=== PATIENT | female | born 2000 | race Caucasian/White ===

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

== ENCOUNTER → 2019-02-22 | Outpatient (REF) | payer OTHER ==
[~2019-02-22] MED LIST: Birth control pill PO; ZOFR4TAB14 PO
== END ==
LOC: M LAB REF 12:17
PROVIDERS: ATTEND Physician Assistant Medical
DX: J02.9 Acute pharyngitis, unspecified (principal)

== ENCOUNTER → 2019-07-10 | Outpatient (CLI) | payer OTHER ==
--- NOTE | 2019-07-11 07:49 | REP ---
Clinical: Trauma. Technique: Frontal view of the chest with four views of the right hemithorax. Findings: Frontal view of the chest demonstrates no acute cardiopulmonary process. Four views of the right hemithorax demonstrates no obvious acute rib fracture or pathology. Impression: No acute fracture. Electronically Signed by Saran Valenzuela MD 07/10/2019 04:56 P
== END ==
LOC: M ADAMS 16:01
PROVIDERS: ATTEND Physician Assistant Medical
DX: S20.221A Contusion of right back wall of thorax, initial encounter (principal); X58.XXXA Exposure to other specified factors, initial encounter; Y92.9 Unspecified place or not applicable

== ENCOUNTER → 2021-08-09 | Outpatient (REF) | payer OTHER ==
[~2021-08-09] MED LIST changes: +CARA1TAB6 PO; +LARI1TAB9 PO; +PROT1TAB2 PO
== END ==
LOC: M LAB REF 16:15
PROVIDERS: ATTEND Physician Assistant
DX: R50.9 Fever, unspecified (principal)

== ENCOUNTER 2021-08-14 19:28 | Emergency (ER) | payer OTHER ==
[~2021-08-14] VITALS: Ht 172.7 cm; Wt 81.8 kg
--- OUTSIDE RECORDS SUMMARY | 2021-08-14 19:39 | CCD ---
Author Author [facility] Organization [facility] Address Unknown Phone Unavailable Care Team Providers Care Erp Consultant Name Role Phone Helen Juan MD Unavailable Unavailable Helen Juan MD Unavailable Unavailable Helen Juan MD Unavailable Unavailable Helen Juan MD Unavailable Unavailable Helen Juan MD Unavailable Unavailable Helen Juan MD Unavailable Unavailable Helen Juan MD Unavailable Unavailable Helen Juan MD Unavailable Unavailable Helen Juan MD Unavailable Unavailable Helen Juan MD Unavailable Unavailable Helen Juan MD Unavailable Unavailable Helen Juan MD Unavailable Unavailable Helen Juan MD Unavailable Unavailable Helen Juan MD Unavailable Unavailable Helen Juan MD Unavailable Unavailable Helen Juan MD Unavailable Unavailable Helen Juan MD Unavailable Unavailable Helen Juan MD Unavailable Unavailable Helen Juan MD Unavailable Unavailable Helen Juan MD Unavailable Unavailable Helen Juan MD Unavailable Unavailable Helen Juan MD Unavailable Unavailable Helen Juan MD Unavailable Unavailable Helen Juan MD Unavailable Unavailable Helen Juan MD Unavailable Unavailable Re-disclosure Warning The records that you are about to access may contain information from federally-assisted alcohol or drug abuse programs. If such information is present, then the following federally mandated warning applies: This information has been disclosed to you from records protected by federal confidentiality rules (42 CFR part 2). The federal rules prohibit you from making any further disclosure of this information unless further disclosure is expressly permitted by the written consent of the person to whom it pertains or as otherwise permitted by 42 CFR part 2. A general authorization for the release of medical or other information is NOT sufficient for this purpose. The Federal rules restrict any use of the information to criminally investigate or prosecute any alcohol or drug abuse patient.The records that you are about to access may contain highly sensitive health information, the redisclosure of which is protected by Article 27-F of the [facility] Public Health law. If you continue you may have access to information: Regarding HIV / AIDS; Provided by facilities licensed or operated by the [facility] Office of Mental Health; or Provided by the [facility] Office for People With Developmental Disabilities. If such information is present, then the following [facility] mandated warning applies: This information has been disclosed to you from confidential records which are protected by state law. State law prohibits you from making any further disclosure of this information without the specific written consent of the person to whom it pertains, or as otherwise permitted by law. Any unauthorized further disclosure in violation of state law may result in a fine or long term sentence or both. A general authorization for the release of medical or other information is NOT sufficient authorization for further disc losure. 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) mgm Unknown Female Problem [facility] ([facility] Encounters Encounter Providers Location Date Indications Data Source(s ) Outpatient Attender: iMsty Juan MD 0 07/03/2021 03:11:36 PM EDT - 07/03/2021 03:42:19 PM EDT [facility] ([facility]) Medications No Information Insurance Providers Payer name Policy type / Coverage type Policy ID Covered green party ID Covered green party's relationship to kapadia Policy [place] Plan Information [employer] [id number] FA2 [id number] [employer] [id number] FA2 [id number] [employer] [id number] Family Dependent [employer] [id number] Family Dependent [id number] [facility] [employer] [id number] Parent [id number] Umr[employer]Uhc[employer] Health Maintenance Organization (HMO) [id number] Family Dependent [id number] U[employer] Commercial [id number] Family Dependent [id number] UMR O [id number] C [id number] [employer] Health Maintenance Organization (HMO) [id number] Family Dependent [id number] [employer] Health Maintenance Organization (HMO) [id number] Family Dependent [id number] [employer] Health Maintenance Organization (HMO) [id number] Family Dependent [id number] UMR O UNAVAILABLE [id number] C UNAVAILA BLE [employer] PPO O [id number] C [id number] [employer] [id number] Family Dependent [id number] [employer] [id number] Family Dependent [id number] [employer] [id number] Family Dependent [id number] [employer] [id number] Family Dependent [id number] [employer] [id number] Family Dependent [id number] [employer] [id number] Family Dependent PUPIL BENEFITS HEALTH PL O UNAVAILABLE [id number] C UNAVAILABLE STATE FARM INS NO FAULT [id number] FA2 [id number] STATE FARM INS NO FAULT [id number] FA2 [id number] UMR [facility] [id number] FA2 [id number] [employer] [id number] FA2 [id number] [employer] Health Maintenance Organization (HMO) [id number] Family Dependent [id number] [employer] Health Maintenance Organization (HMO) [id number] Family Dependent [id number] Umr Commercial [id number] Family Dependent [id number] [employer] Medigap Part B [id number] Family Dependent [id number] Problems, Conditions, and Diagnoses No Information Surgeries/Procedures No Information Results ID Date Data Source [id number] 08/09/2021 03:05:00 PM EDT [facility] Name Value Range Interpretation Code Description Data Anna rce(s) Supporting Document(s) Respiratory pathogens identified [Type] in Nasopharynx by Probe and target amplification method SARS-CoV-2 (COVID 19) [facility] This lab was ordered by [facility] a nd reported by [facility]. ID Date Data Source [id number] 07/03/2021 03:30:00 PM EDT [facility] Name Value Range Interpretation Code Description Data Anna rce(s) Supporting Document(s) SARS-CoV-2 RNA Resp Ql RACHEL+probe NOT DETECTED [facility] This lab was ordered by BALBINA guzman and reported by BALBINA Christina. ID Date Data Source [id number] 12/16/2020 12:00:00 AM EST [facility] Name Value Range Interpretation Code Description Data Anna rce(s) Supporting Document(s) SARS-CoV2 Rapid Antigen Negative [facility] This lab was ordered by [facility] and reported by [facility]. ID Date Data Source [id number] 10/31/2020 12:00:00 AM EST [facility] Name Value Range Interpretation Code Description Data Anna rce(s) Supporting Document(s) SARS-CoV2 Rapid Antigen [facility] This lab was ordered by [facility] and reported by [facility]. Procedure Social History No Information
[2021-08-15] MEDS: NS 1,000 ML IV SCH ×2 (04:45→07:33)
[2021-08-15] MEDS ORDERED: ACETAMINOPHEN 325 MG TAB PO ONE (05:00)
[2021-08-15 05:15] LABS: BASO % 0.4 % (0.0-1.0); HEMATOCRIT 40.7 % (36.0-47.0); HEMOGLOBIN 13.1 g/dl (12.0-15.5); LYMPH # 1.3 10^3/uL (1.5-5.0); LYMPH % 48.1 % (24.0-44.0); MEAN CORPUSCULAR HEMOGLOBIN 28.5 pg (27.0-33.0); MEAN CORPUSCULAR HGB CONC 32.2 g/dl (32.0-36.5); MEAN CORPUSCULAR VOLUME 88.7 fl (80.0-96.0); MONO # 0.1 10^3/uL (0.0-0.8); MONO % 4.2 % (2.0-8.0); NEUTROPHILS # 1.2 10^3/uL (1.5-8.5); NEUTROPHILS % 46.9 % (36.0-66.0); PLATELET COUNT, AUTOMATED 127 10^3/uL (150-450); RED BLOOD COUNT 4.59 10^6/uL (4.00-5.40); WHITE BLOOD COUNT 2.6 10^3/uL (4.0-10.0)
[2021-08-15 05:23] LABS: INR 0.99; PROTHROMBIN TIME 13.4 SECONDS (12.7-14.5)
[2021-08-15 05:24] LABS: PARTIAL THROMBOPLASTIN TIME 37.6 SECONDS (25.9-37.0)
[2021-08-15 05:27] LABS: D-DIMER QUANT 572.56 ng/ml (<500)
[2021-08-15 05:41] LABS: ALBUMIN 3.8 GM/DL (3.2-5.2); ALT/SGPT 40 U/L (12-78); BILIRUBIN,DIRECT < 0.1 MG/DL (0.0-0.2); BILIRUBIN,TOTAL 0.3 MG/DL (0.2-1.0); C REACTIVE PROTEIN QUANTITATIV 2.19 MG/DL (0.00-0.30); CPK CREATINE PHOSPHOKINASE 61 U/L (26-192); FERRITIN 156 NG/ML (8-252); LDH LACTATE DEHYDROGENASE 239 U/L (84-246); TOTAL PROTEIN 7.1 GM/DL (6.4-8.2); TROPONIN I < 0.02 NG/ML (< 0.10)
--- NOTE | 2021-08-15 06:49 | REPVR ---
PROCEDURE INFORMATION: Exam: XR Chest Exam date and time: 08/15/2021 4:37 AM Age: 21 years old Clinical indication: Other: SOB TECHNIQUE: Imaging protocol: XR of the chest. Views: 1 view. COMPARISON: CR Chest, 2 view PA, Lat 09/13/2019 11:21 PM FINDINGS: Lungs: Hazy ground-glass opacity within the right lower lung consistent with infiltrate. Minimal hazy opacity within the left lower lung may represent superimposed breast tissue or minimal infiltrate as well. Pleural spaces: Unremarkable. No pleural effusion. No pneumothorax. Heart/Mediastinum: Unremarkable. No cardiomegaly. Bones/joints: Unremarkable. IMPRESSION: Ground-glass infiltrate within the right lower lung consistent with pneumonia. Possible minimal infiltrate within the left lower lung as well. Electronically signed by: Saran Avalos On 08/15/2021 06:49:15 AM
[2021-08-15 07:30] LABS: HCG, SERUM QUALITATIVE NEGATIVE (NEGATIVE)
[2021-08-15 07:34] LABS: BLOOD UREA NITROGEN 13 MG/DL (7-18); CALCIUM LEVEL 8.5 MG/DL (8.5-10.1); CARBON DIOXIDE LEVEL 23 MEQ/L (21-32); CHLORIDE LEVEL 105 MEQ/L (98-107); CREATININE FOR GFR 0.75 MG/DL (0.55-1.30); GLOMERULAR FILTRATION RATE > 60.0 (>60); GLUCOSE, FASTING 78 MG/DL (70-100); POTASSIUM SERUM 4.2 MEQ/L (3.5-5.1); SODIUM LEVEL 137 MEQ/L (136-145)
[2021-08-15] MEDS ORDERED: ISOVUE-370 76% 100ML VIAL As Ordered ONE (07:49)
--- NOTE | 2021-08-15 08:31 | REP ---
INDICATION: SOB/pleuritic chest pain, rule out PE COMPARISON: None. TECHNIQUE: Axial contrast enhanced images from the thoracic inlet to the upper abdomen using pulmonary embolus technique with multiplanar re-formations. 100 ml Isovue 370 intravenous contrast material administered without complication. This CT examination was performed using the following dose reduction techniques: Automated exposure control, adjustment of mA and/or kv according to the patient's size, and use of iterative reconstruction technique. FINDINGS: Satisfactory enhancement of the pulmonary vasculature is achieved and no filling defects are identified to suggest pulmonary embolus. Further evaluation of the mediastinum demonstrates normal thoracic aorta, heart and pericardium. Area of consolidation involving the right middle lobe and smaller patchy foci of airspace disease in the left lower lobe consistent with multifocal pneumonia. Correlation is required as COVID-19 pulmonary disease cannot be excluded. No effusion. No pneumothorax. No significant adenopathy. Tracheobronchial tree is patent. Musculoskeletal structures are intact. IMPRESSION: No evidence for pulmonary embolus. Moderate right lower lobe opacity and patchy left lower lobe opacities consistent with multifocal pneumonia versus COVID-19 pulmonary disease.. <Electronically signed by Saran Valenzuela > 08/15/21 [id number]
--- NOTE | 2021-08-15 08:32 | REP ---
INDICATION: distended abdomen, sob. COMPARISON: None TECHNIQUE: Axial contrast-enhanced images from the lung bases to the pubic symphysis using 100 cc Isovue 370 intravenous contrast material. Coronal and sagittal reformations obtained. This CT examination was performed using the following dose reduction techniques: Automated exposure control, adjustment of mA and/or kv according to the patient's size, and the use of iterative reconstruction technique. FINDINGS: Liver, spleen, pancreas, gallbladder, bilateral adrenal glands and kidneys are normal. The enteric system including stomach, small, and large bowel appears normal. No evidence for obstruction or acute inflammatory process. Normal terminal ileum and appendix are identified in the right lower quadrant. Pelvis demonstrates normal bladder and age-appropriate uterus/adnexa. No ascites. No free air. No intraperitoneal or retroperitoneal adenopathy. Abdominal aorta and vasculature appear normal. Musculoskeletal structures are intact and without acute osseous abnormality. IMPRESSION: No acute abdominopelvic pathology appreciated. Primarily right lower lobe consolidation suggesting pneumonia versus COVID-19 pulmonary disease. <Electronically signed by Saran Valenzuela > 08/15/21 0850
[2021-08-15] MEDS ORDERED: LevoFLOXacin 750 MG TABLET PO ONE (09:00)
--- OUTSIDE RECORDS SUMMARY | 2021-08-15 09:50 | CCD ---
Author Author [facility] Organization [facility] Address Unknown Phone Unavailable Care Team Providers Care Outcomes Specialist Name Role Phone Helen Juan MD Unavailable [...] is protected by Article 27-F of the [facility] Public Health law. If you continue you may have access to information: Regarding HIV / AIDS; Provided by facilities licensed or operated by the [facility] Office of Mental Health; or Provided by the [facility] Office for People With Developmental Disabilities. If such information is present, then the following [facility] mandated warning applies: This information has [...] law may result in a fine or usp sentence or both. A general authorization for the release of medical or other information is NOT sufficient authorization for further disc losure. Family History Family Member Name Family Member Gender Family Member Status Date o f Status Description Data Source(s) Unknown Unknown Problem MEDENT ([facility]) mgm Unknown Female Problem MEDENT ([facility]) Encounters Encounter Providers Location Date Indications Data Source(s ) Outpatient Attender: Misty Juan MD 0 07/03/2021 03:11:36 PM EDT - 07/03/2021 03:42:19 PM EDT [facility] ([facility]) Medications No Information Insurance Providers Payer name Policy type / Coverage type Policy ID Covered democrat ID Covered democrat's relationship to bedolla Policy [place] Plan Information [employer] [id number] FA2 [id number] [employer] [id number] FA2 [id number] [employer] [id number] Family Dependent [employer] [id number] Family Dependent [id number] [facility] Commercial Insurance Co. [id number] Parent [id number] U[employer] Health Maintenance Organization (HMO) [id number] Family Dependent [id number] Umr Commercial [id number] Family Dependent [id number] UMR O [id number] C [id number] U[employer] Health Maintenance Organization (HMO) [id number] Family Dependent [id number] [employer] Health Maintenance Organization (HMO) [id number] Family Dependent [id number] [employer] Health Maintenance Organization (HMO) [id number] Family Dependent [id number] UMR O UNAVAILABLE [id number] C UNAVAILA BLE [employer] PPO O [id number] C [id number] [employer] Commercial [id number] Family Dependent [id number] [employer] [id number] Family Dependent [id number] [employer] [id number] Family Dependent [id number] [employer] [id number] Family Dependent [id number] [employer] [id number] Family Dependent [id number] [employer] [id number] Family Dependent PUPIL BENEFITS HEALTH PL O UNAVAILABLE [id number] C UNAVAILABLE STATE FARM INS NO FAULT [id number] FA2 [id number] [place] INS NO FAULT [id number] FA2 [id number] UMR [facility] [id number] FA2 [id number] [employer] [id number] FA2 [id number] [facility] Health Maintenance Organization (HMO) [id number] Family Dependent [id number] [facility] Health Maintenance Organization (HMO) [id number] Family Dependent [id number] Umr Commercial [id number] Family Dependent [id number] [employer] Medigap Part B [id number] Family Dependent [id number] Problems, Conditions, and Diagnoses No Information Surgeries/Procedures No Information Results ID Date Data Source [id number] 08/09/2021 03:05:00 PM EDT [facility] Name Value Range Interpretation Code Description Data Anna rce(s) Supporting Document(s) Respiratory pathogens identified [Type] in Nasopharynx by Probe and target amplification method SARS-CoV-2 (COVID 19) [facility] This lab was ordered by [facility] a nd reported by [facility]. ID Date Data Source [id number] 07/03/2021 03:30:00 PM EDT [facility] Name Value Range Interpretation Code Description Data Anna rce(s) Supporting Document(s) SARS-CoV-2 RNA Resp Ql RACHEL+probe NOT DETECTED [facility] This lab was ordered by BALBINA guzman and reported by [facility] Christina. ID Date Data Source [id number] 12/16/2020 12:00:00 AM EST [facility] Name Value Range Interpretation Code Description Data Anna rce(s) Supporting Document(s) SARS-CoV2 Rapid Antigen Negative [facility] This lab was ordered by [facility] and reported by [facility]. ID Date Data Source [id number] 10/31/2020 12:00:00 AM EST [facility] Name Value Range Interpretation Code Description Data Anna rce(s) Supporting Document(s) SARS-CoV2 Rapid Antigen [facility] This lab was ordered by [facility] and reported by [facility]. Procedure Social History No Information
[2021-08-15] MEDS ORDERED: LEVO750T13 PO (11:09)
[2021-08-15 11:23] VITALS: BP 104/58
== END 2021-08-15 13:46 | disposition home or self-care (01) ==
LOC: M ED 19:28
DX: U07.1 COVID-19 (principal); J12.9 Viral pneumonia, unspecified; Z88.2 Allergy status to sulfonamides; Z91.030 Bee allergy status; Z79.899 Other long term (current) drug therapy
CPT/HCPCS: 71045; 71275; 74177; 80048; 80076; 82550; 82728; 83615; 84484; 84703; 85025; 85379; 85384; 85610; 85730; 86140; 96360; 99284; Q9967

== ENCOUNTER 2021-08-15 19:00 | Outpatient (CLI) | payer OTHER ==
--- NOTE | 2021-08-15 12:09 | IPNPDOC ---
Subjective Date Seen The patient was seen on 08/15/21. Subjective Chief Complaint/HPI Ms. Curry is a 21 year old female who is here with COVID symtpoms. She is unvaccinated. Last week she was off from work. Denies any sick contacts or recent travel. She is not sure how she cought COVID, but on , Aug, she started to have chills, fever of 102, dry cough, and headaches. She was tested positive for COVID on Thursday, Aug 09, 2021. Her symtpoms progressively worsened. On Thursday, she had loss of taste. Yesterday she had shortness of breath. Today, she came to the ED for evaluation. While here, vitals were stable. She did have a fever, but not hypoxic. These was consodidation on the right lower lobe, but patient did not meet impatient criteria. Patient was to be sent home with Levoflxacin. Otherwise, the risks and benefits of monoclonal antibiodies were discussed with the patient. She is agreeable to monoclonal antibodies, and she signed the consent form. Past medical history Patient denies any past medical history Past surgical history Patient denies any past surgical history Social history Patient lives alone She is unvaccinated Denies ever smoking Denies alcohol used Denies any recreational drug use Family history Patient denies any known medical history in parents Constitutional: Reports: Fever Eyes: Denies: Vision change ENT: Reports: Head Aches, Other Symptoms (Loss of taste) Skin: Denies: Rash Pulmonary: Reports: Dyspnea, Cough Cardiovascular: Denies: Chest Pain Gastrointestinal: Denies: Abdominal Pain, Diarrhea Genitourinary: Denies: Dysuria Hematologic: Denies: Bruising Neurological: Denies: Numbness Psych: Denies: Anxiety, Depression Objective Physical Examination General Exam: Positive: Alert, Cooperative, No Acute Distress Eye Exam: Positive: EOMI; Negative: Sclera icteric ENT Exam: Positive: Atraumatic Neck Exam: Positive: Supple Chest Exam: Positive: Clear to auscultation Heart Exam: Positive: Rate Normal, Regular Rhythm Abdomen Exam: Positive: Normal bowel sounds, Soft; Negative: Tenderness Extremity Exam: Negative: Edema Neuro Exam: Positive: Normal Speech Psych Exam: Positive: Mental status NL, Mood NL Assessment /Plan Assessment Ms. Curry is a 21 year old female who is here with COVID symtpoms. She is unvaccinated. She denies recent travel or sick contacts. She is unclear how she caught COVID 19, but she did say she went out to [employer] and [employer]. Imaging demonstrated right lower lobe consolidation, but patient did not have any hypoxia. She has a dry cough. Patient will be discharged with Levofloxacin. Otherwise, We discussed about monoclonal antibodies and she is agreeable to them. Patient to receive monoclonal antibodies today. Plan/VTE VTE Prophylaxis Ordered?: No (Outpatinet) Plan 1. COVID 19 infection -Not hypoxic -Dry cough -We discussed the risks and benefits of monoclonal antibodies. Patient to receive monoclonal antibodies today. 2. Right lower lobe pneumonia -Continue PO levofloxacin Patient should follow up with PCP within a week. BUCKY SANTACRUZ DO Aug 15, 2021 12:09
[2021-08-15 16:40] VITALS: BP_SYST 132; BP_SYST 99; BP_DIAS 54; BP_DIAS 71
[2021-08-15 17:10] VITALS: BP 101/57
[2021-08-15 17:45] VITALS: BP 97/62
[2021-08-15 18:51] VITALS: BP 114/57
[~2021-08-15 19:00] MED LIST changes: +ACETAMINOPHEN TAB 650MG DOSE (2X325MG) PO PRN; +ALBUTEROL 90 MCG/ACT 8GM HFA INHALER INH PRN; +ALBUTEROL SULFATE 2.5 MG/0.5 ML INH NEB SOLN INH PRN; +BAMLANIVIMAB 700 MG, ETESEVIMAB 1,400 MG in NS 250 ML IV ONE; +CASIRIVIMAB/IMDEVIMAB 1,200 MG in NS 250 ML IV ONE; +EPINEPHrine INJ 1 MG/ML 1ML AMP IM PRN; +LEVO750T13 PO; +NS 1,000 ML IV SCH; +diphenhydrAMINE 50MG/ML VIAL (J1200) IV PRN; +methylPREDNISolone 125MG 2ML VIAL IV PRN
== END 2021-08-15 19:05 ==
LOC: M 4MAIN 19:00 → M OPCLI4 19:00
PROVIDERS: ATTEND Internal Medicine
DX: U07.1 COVID-19 (principal); Z88.2 Allergy status to sulfonamides

== ENCOUNTER → 2021-12-23 | Outpatient (CLI) | payer OTHER ==
[~2021-12-23] MED LIST changes: -ACETAMINOPHEN TAB 650MG DOSE (2X325MG) PO PRN; -ALBUTEROL 90 MCG/ACT 8GM HFA INHALER INH PRN; -ALBUTEROL SULFATE 2.5 MG/0.5 ML INH NEB SOLN INH PRN; -BAMLANIVIMAB 700 MG, ETESEVIMAB 1,400 MG in NS 250 ML IV ONE; -CASIRIVIMAB/IMDEVIMAB 1,200 MG in NS 250 ML IV ONE; -EPINEPHrine INJ 1 MG/ML 1ML AMP IM PRN; -NS 1,000 ML IV SCH; -diphenhydrAMINE 50MG/ML VIAL (J1200) IV PRN; -methylPREDNISolone 125MG 2ML VIAL IV PRN
[2021-12-23 10:41] LABS: BASO % 0.5 % (0.0-1.0); EOS # 0.2 10^3/uL (0.0-0.5); EOS % 3.3 % (0.0-3.0); HEMATOCRIT 39.1 % (36.0-47.0); HEMOGLOBIN 12.7 g/dl (12.0-15.5); LYMPH # 2.6 10^3/uL (1.5-5.0); LYMPH % 41.2 % (24.0-44.0); MEAN CORPUSCULAR HEMOGLOBIN 28.7 pg (27.0-33.0); MEAN CORPUSCULAR HGB CONC 32.5 g/dl (32.0-36.5); MEAN CORPUSCULAR VOLUME 88.5 fl (80.0-96.0); MONO # 0.3 10^3/uL (0.0-0.8); MONO % 5.4 % (2.0-8.0); NEUTROPHILS # 3.1 10^3/uL (1.5-8.5); NEUTROPHILS % 49.4 % (36.0-66.0); PLATELET COUNT, AUTOMATED 268 10^3/uL (150-450); RED BLOOD COUNT 4.42 10^6/uL (4.00-5.40); WHITE BLOOD COUNT 6.3 10^3/uL (4.0-10.0)
[2021-12-23 11:23] LABS: ALBUMIN 3.8 GM/DL (3.2-5.2); ALT/SGPT 26 U/L (12-78); BILIRUBIN,TOTAL 0.6 MG/DL (0.2-1.0); BLOOD UREA NITROGEN 12 MG/DL (7-18); CALCIUM LEVEL 8.8 MG/DL (8.5-10.1); CARBON DIOXIDE LEVEL 26 MEQ/L (21-32); CHLORIDE LEVEL 108 MEQ/L (98-107); CREATININE FOR GFR 0.87 MG/DL (0.55-1.30); FREE T4 0.98 NG/DL (0.76-1.46); GLOMERULAR FILTRATION RATE > 60.0 (>60); GLUCOSE, FASTING 83 MG/DL (70-100); POTASSIUM SERUM 3.9 MEQ/L (3.5-5.1); SODIUM LEVEL 139 MEQ/L (136-145); TOTAL PROTEIN 7.1 GM/DL (6.4-8.2)
== END ==
LOC: M LAB 09:54
PROVIDERS: ATTEND Nurse Practitioner Family
DX: Z00.00 Encounter for general adult medical examination without abnormal findings (principal)

== ENCOUNTER → 2022-07-18 | Outpatient (CLI) | payer OTHER ==
[~2022-07-18] MED LIST changes: +LEVO1TAB40 PO; -LEVO750T13 PO
[2022-07-18 07:54] LABS: BASO % 0.6 % (0.0-1.0); EOS # 0.2 10^3/uL (0.0-0.5); EOS % 3.7 % (0.0-3.0); HEMATOCRIT 41.2 % (36.0-47.0); HEMOGLOBIN 13.1 g/dl (12.0-15.5); LYMPH # 2.2 10^3/uL (1.5-5.0); LYMPH % 34.3 % (24.0-44.0); MEAN CORPUSCULAR HEMOGLOBIN 28.6 pg (27.0-33.0); MEAN CORPUSCULAR HGB CONC 31.8 g/dl (32.0-36.5); MONO # 0.4 10^3/uL (0.0-0.8); MONO % 6.6 % (2.0-8.0); NEUTROPHILS # 3.5 10^3/uL (1.5-8.5); NEUTROPHILS % 54.2 % (36.0-66.0); PLATELET COUNT, AUTOMATED 297 10^3/uL (150-450); RED BLOOD COUNT 4.58 10^6/uL (4.00-5.40); WHITE BLOOD COUNT 6.5 10^3/uL (4.0-10.0)
[2022-07-18 08:33] LABS: ALT/SGPT 29 U/L (12-78); BILIRUBIN,TOTAL 0.3 MG/DL (0.2-1.0); BLOOD UREA NITROGEN 9 MG/DL (7-18); CALCIUM LEVEL 9.3 MG/DL (8.5-10.1); CARBON DIOXIDE LEVEL 28 MEQ/L (21-32); CHLORIDE LEVEL 106 MEQ/L (98-107); CREATININE FOR GFR 0.92 MG/DL (0.55-1.30); GLOMERULAR FILTRATION RATE > 60.0 (>60); GLUCOSE, FASTING 78 MG/DL (70-100); POTASSIUM SERUM 4.3 MEQ/L (3.5-5.1); SODIUM LEVEL 136 MEQ/L (136-145); TOTAL PROTEIN 7.6 GM/DL (6.4-8.2)
[2022-07-19 12:08] LABS: H PYLORI SERUM QUANT IGA <9.0 units (0.0-8.9); H PYLORI SERUM QUANT IGM <9.0 units (0.0-8.9)
== END ==
LOC: M LAB 07:05
PROVIDERS: ATTEND Nurse Practitioner Family
DX: R10.84 Generalized abdominal pain (principal)

== ENCOUNTER → 2022-10-07 | Outpatient (CLI) | payer OTHER | LOC: M RAD 16:43 | PROVIDERS: ATTEND Registered Nurse | DX: M25.562 Pain in left knee (principal) ==

== ENCOUNTER → 2022-10-13 | Outpatient (CLI) | payer OTHER | LOC: M PLAIMG 06:54 | PROVIDERS: ATTEND Registered Nurse | DX: M25.562 Pain in left knee (principal) ==

== ENCOUNTER → 2022-12-27 | Outpatient (CLI) | payer OTHER ==
[2022-12-27 10:01] LABS: HEMOGLOBIN A1c 5.2 % (4.0-6.0)
[2022-12-27 10:04] LABS: CHOLESTEROL RISK RATIO 2.96 (<5); HDL CHOLESTEROL 52.6 MG/DL (>40); LDL CHOLESTEROL 91.6 MG/DL (<100); THYROID STIMULATING HORMONE 2.622 uIU/ML (0.55-4.78)
[2022-12-27 10:05] LABS: FREE T4 0.93 NG/DL (0.89-1.76)
== END ==
LOC: M LAB 08:53
PROVIDERS: ATTEND Nurse Practitioner Family
DX: E66.9 Obesity, unspecified (principal)

== ENCOUNTER 2023-04-06 20:45 | Emergency (ER) | payer OTHER ==
[~2023-04-06] VITALS: Ht 172.7 cm; Wt 91.7 kg
[2023-04-06 20:47] VITALS: BP 121/62
== END 2023-04-06 22:52 | disposition left against medical advice (07) ==
LOC: M ED 20:45
DX: Z53.21 Procedure and treatment not carried out due to patient leaving prior to being seen by health care provider (principal)

== ENCOUNTER → 2023-12-15 | Outpatient (REF) | payer OTHER ==
[2023-12-15 19:32] LABS: CHLAMYDIA DNA AMPLIFICATION NEGATIVE (NEGATIVE); GC DNA AMPLIFICATION NEGATIVE (NEGATIVE)
== END ==
LOC: M LAB REF 17:35
PROVIDERS: ATTEND Registered Nurse
DX: Z11.3 Encounter for screening for infections with a predominantly sexual mode of transmission (principal)

== ENCOUNTER → 2024-09-19 | Outpatient (CLI) | payer OTHER | LOC: M PLAIMG 06:38 | PROVIDERS: ATTEND Physician Assistant Medical | DX: M25.562 Pain in left knee (principal); M25.462 Effusion, left knee; M67.52 Plica syndrome, left knee ==

== ENCOUNTER → 2025-02-14 | Outpatient (CLI) | payer OTHER ==
[2025-02-14 08:19] LABS: BASO # 0.1 10^3/uL (0.0-0.2); BASO % 1.5 % (0.0-1.0); EOS # 0.2 10^3/uL (0.0-0.5); EOS % 3.4 % (0.0-3.0); HEMATOCRIT 37.4 % (36.0-47.0); HEMOGLOBIN 12.2 g/dl (12.0-15.5); LYMPH # 2.1 10^3/uL (1.5-5.0); LYMPH % 35.8 % (24.0-44.0); MEAN CORPUSCULAR HEMOGLOBIN 28.7 pg (27.0-33.0); MEAN CORPUSCULAR HGB CONC 32.6 g/dl (32.0-36.5); MONO # 0.3 10^3/uL (0.0-0.8); MONO % 4.9 % (2.0-8.0); NEUTROPHILS # 3.2 10^3/uL (1.5-8.5); NEUTROPHILS % 53.9 % (36.0-66.0); PLATELET COUNT, AUTOMATED 257 10^3/uL (150-450); RED BLOOD COUNT 4.25 10^6/uL (4.00-5.40)
[2025-02-14 08:25] LABS: ERYTHROCYTE SEDIMENTATION RATE 15 mm/hr (0-20)
[2025-02-14 08:43] LABS: URIC ACID 5.1 MG/DL (3.1-7.8)
[2025-02-14 08:46] LABS: ALBUMIN 3.9 G/DL (3.2-5.2); ALKALINE PHOSPHATASE 77 U/L (35-104); ALT/SGPT 31 U/L (7.0-40); AST/SGOT 20 U/L (<34); BILIRUBIN,TOTAL 0.4 MG/DL (0.3-1.2); BLOOD UREA NITROGEN 9 MG/DL (9-23); C REACTIVE PROTEIN QUANTITATIV 0.54 MG/DL (<1.0); CALCIUM LEVEL 8.9 MG/DL (8.5-10.1); CARBON DIOXIDE LEVEL 26 MMOL/L (20-31); CHLORIDE LEVEL 107 MMOL/L (98-107); CREATININE FOR GFR 0.76 MG/DL (0.55-1.30); GLOMERULAR FILTRATION RATE > 90.0 (>60); GLUCOSE, FASTING 78 MG/DL (60-100); POTASSIUM SERUM 3.6 MMOL/L (3.5-5.1); SODIUM LEVEL 141 MMOL/L (136-145)
[2025-02-14 08:49] LABS: MONO REFLEX EBV COMP NEGATIVE (NEGATIVE)
[2025-02-16 12:53] LABS: ANA SCREEN, IFA NEGATIVE (NEGATIVE)
== END ==
LOC: M LAB 07:43
PROVIDERS: ATTEND Registered Nurse
DX: R50.9 Fever, unspecified (principal)

== ENCOUNTER → 2025-03-18 | Outpatient (REF) | payer BC | LOC: M LAB REF 17:34 | PROVIDERS: ATTEND Physician Assistant | DX: N39.0 Urinary tract infection, site not specified (principal) ==

== ENCOUNTER 2025-05-30 16:16 | Emergency (ER) | payer BC ==
[~2025-05-30] VITALS: Ht 175.3 cm; Wt 89.3 kg
[2025-05-30] MEDS ORDERED: DEPO150I12 IM (16:21)
[2025-05-30] MEDS ORDERED: BUSP5TA (16:21)
[2025-05-30] MEDS: NS (Normal Saline) 0.9% 1,000 ML IV ONE (18:45)
[2025-05-30 18:58] VITALS: TEMP 97.6
[2025-05-30] MEDS: KETOROLAC 30 MG/ML 1 ML VIAL IV ONE (19:34)
[2025-05-30] MEDS: ACETAMINOPHEN 500 MG TAB PO ONE (19:35)
[2025-05-30] MEDS ORDERED: ISOVUE-370 76% 100 ML VIAL As Ordered ONE (19:40)
[2025-05-30 20:33] LABS: POTASSIUM SERUM 4.2 MMOL/L (3.5-5.1)
[2025-05-30 20:48] LABS: HCG, SERUM QUALITATIVE NEGATIVE (NEGATIVE)
[2025-05-30] MEDS: dexAMETHasone 4 MG/ML 1 ML VIAL IV ONE (21:25)
[2025-05-30 21:46] VITALS: BP 100/70; O2SAT 100
== END 2025-05-30 21:37 | disposition home or self-care (01) ==
LOC: M ED 16:16
DX: S09.90XA Unspecified injury of head, initial encounter (principal); R51.9 Headache, unspecified; W01.198A Fall on same level from slipping, tripping and stumbling with subsequent striking against other object, initial encounter; F10.10 Alcohol abuse, uncomplicated; Y92.9 Unspecified place or not applicable; Y93.89 Activity, other specified; Y99.9 Unspecified external cause status; Z79.899 Other long term (current) drug therapy
CPT/HCPCS: 70450; 80047; 84132; 84703; 96361; 96374; 96375; 99284; J1100; J1885; J2765; Q9967

== ENCOUNTER → 2025-06-14 | Outpatient (CLI) | payer BC ==
[~2025-06-14] MED LIST changes: +BUSP5TA; +DEPO150I12 IM
[2025-06-14 14:25] LABS: HCG, SERUM QUALITATIVE NEGATIVE (NEGATIVE)
== END ==
LOC: M LAB 13:00
PROVIDERS: ATTEND Registered Nurse
DX: N91.2 Amenorrhea, unspecified (principal)

== ENCOUNTER → 2025-06-21 | Outpatient (CLI) | payer BC ==
[~2025-06-21] MED LIST changes: +ISOVUE-370 76% 100 ML VIAL As Ordered ONE
[2025-06-21 16:53] LABS: BASO # 0.0 10^3/uL (0.0-0.2); BASO % 0.4 % (0.0-1.0); EOS # 0.3 10^3/uL (0.0-0.5); EOS % 3.5 % (0.0-3.0); LYMPH # 3.1 10^3/uL (1.5-5.0); LYMPH % 39.7 % (24.0-44.0); MONO # 0.5 10^3/uL (0.0-0.8); MONO % 6.0 % (2.0-8.0); NEUTROPHILS # 3.9 10^3/uL (1.5-8.5); NEUTROPHILS % 50.1 % (36.0-66.0); PLATELET COUNT, AUTOMATED 269 10^3/uL (150-450)
[2025-06-21 17:31] LABS: ALT/SGPT 58 U/L (7.0-40); AST/SGOT 32 U/L (<34); CALCIUM LEVEL 9.2 MG/DL (8.5-10.1); CARBON DIOXIDE LEVEL 27 MMOL/L (20-31); CHLORIDE LEVEL 105 MMOL/L (98-107); CREATININE FOR GFR 0.73 MG/DL (0.55-1.30); GLOMERULAR FILTRATION RATE > 90.0 (>60); POTASSIUM SERUM 4.1 MMOL/L (3.5-5.1); SODIUM LEVEL 143 MMOL/L (136-145)
[2025-06-21 17:33] LABS: FREE T4 1.17 NG/DL (0.89-1.76)
[2025-06-21 17:34] LABS: HCG, SERUM QUALITATIVE NEGATIVE (NEGATIVE)
== END ==
LOC: M RAD 16:31
PROVIDERS: ATTEND Nurse Practitioner Family
DX: R10.31 Right lower quadrant pain (principal)
CPT/HCPCS: 36415; 74177; 80053; 84439; 84443; 84703; 85025; Q9967